=== PATIENT | male | born 2000 | race Two or more races ===

== ENCOUNTER 2021-03-23 04:20 | Emergency (ER) | payer OTHER ==
[~2021-03-23] VITALS: Ht 170.2 cm; Wt 88.0 kg
== END 2021-03-23 07:37 | disposition home or self-care (01) ==
LOC: ER 04:20
DX: K62.5 Hemorrhage of anus and rectum (principal)

== ENCOUNTER 2022-04-02 09:33 | Day surgery (SDC) | payer OTHER | END 2022-04-02 16:50 | disposition home or self-care (01) | LOC: AMB-ENDOS 09:33 | PROVIDERS: ATTEND Colon & Rectal Surgery | DX: K64.4 Residual hemorrhoidal skin tags (principal); K62.5 Hemorrhage of anus and rectum; K57.30 Diverticulosis of large intestine without perforation or abscess without bleeding; Z20.822 Contact with and (suspected) exposure to COVID-19; J45.909 Unspecified asthma, uncomplicated ==